=== PATIENT | male | born 1955 | race Caucasian/White ===

== ENCOUNTER 2017-01-01 16:30 | Emergency (ER) | payer OTHER ==
[~2017-01-01] VITALS: Ht 160 cm; Wt 89.8 kg
[~2017-01-01 16:30] MED LIST: LUBI24CA7 PO; Levothyroxine Sodium PO; OXYC-34 PO; PANT40TA2 PO; TADA20TA PO; TREP1.743 IH
--- NOTE | 2017-01-01 17:34 | NUR ---
PT IS IN ROOM #2A. DR LI EVALUATED THE PT.
--- NOTE | 2017-01-01 19:06 | NUR ---
PT WAS D/C TO HOME AFTER ER MD EVALUATION. D/C INSTRUCTIONS GIVEN TO THE PT.
[2017-01-01 19:08] VITALS: BP 142/78
== END 2017-01-01 19:09 | disposition home or self-care (01) ==
LOC: ER 16:30
DX: L03.115 Cellulitis of right lower limb (principal); I10 Essential (primary) hypertension; K21.9 Gastro-esophageal reflux disease without esophagitis; I50.9 Heart failure, unspecified
CPT/HCPCS: A4663

== ENCOUNTER 2017-06-11 01:07 | Emergency (ER) | payer OTHER ==
[~2017-06-11] VITALS: Ht 160 cm; Wt 89.8 kg
[~2017-06-11 01:07] MED LIST changes: +LUBI24CA5 PO; -LUBI24CA7 PO; +OXYC-133 PO; -OXYC-34 PO
--- NOTE | 2017-06-11 01:30 | NUR ---
Dr. Cohen at bedside for MSE
[2017-06-11] MEDS ORDERED: SILVER SULFADIAZINE 1% CREAM 50 GM TP ONE (01:45)
[2017-06-11] MEDS ORDERED: VANCOMYCIN 1G/D5W 200 ML PIGGYBACK IV ONE (01:45)
[2017-06-11] MEDS ORDERED: OXYCODONE/APAP 5-325 MG TABLET PO ONE (01:45)
--- NOTE | 2017-06-11 02:06 | NUR ---
IV established. ABT infusion started, will monitor for any adverse reactions. Pt medicated for discomfort, will monitor for effects of medication
[2017-06-11] MEDS ORDERED: VANCOMYCIN IV 200 ML ONE (02:12)
[2017-06-11] MEDS ORDERED: SILVER SULFADIAZINE 1% CREAM 25 GM TUBE TP ONE (02:12)
[2017-06-11] MEDS ORDERED: OXYCODONE/APAP 5-325 MG TABLET ONE (02:12)
--- NOTE | 2017-06-11 02:16 | NUR ---
wound culture collected and sent from wound to bottom of right foot
--- NOTE | 2017-06-11 02:31 | NUR ---
Wound to bottom of right foot irrigated, silvidine ointment applied and bulky dry drsg applied. Pos CMS s/p application. Pt resting in position of comfort for self waiting completion of ABT infusion.
--- NOTE | 2017-06-11 03:30 | NUR ---
ABT infusion completed, no adverse reactions noted. Pt sts pain improved. Dr. Cohen aware of pt's vital signs, no further orders given at this time. IV dc'd, catheter intact, drsg applied. No problems noted to site. Pt signed out AMA and said he would return later this morning for further treatment. Pt was given [facility] paperwork. Pt verbalized understanding of instructions and verbalized understanding of risks with leaving AMA. Pt ambulated out of ER with slow steady gait to wait for ride.
[2017-06-11 03:34] VITALS: BP 99/58
[2017-06-11] MEDS ORDERED: TEST200V3 IM (17:09)
[2017-06-11] MEDS ORDERED: ZOLP10TA2 PO (17:09)
[2017-06-11] MEDS ORDERED: FURO-151 PO (17:09)
[2017-06-12] MEDS ORDERED: DICL100T2 PO (10:50)
== END 2017-06-11 03:35 | disposition left against medical advice (07) ==
LOC: ER 01:09
DX: L97.519 Non-pressure chronic ulcer of other part of right foot with unspecified severity (principal); L03.115 Cellulitis of right lower limb; I10 Essential (primary) hypertension; I50.9 Heart failure, unspecified; K21.9 Gastro-esophageal reflux disease without esophagitis; Z86.718 Personal history of other venous thrombosis and embolism
CPT/HCPCS: 87070; 87077; 87186; 96365; 99284; A4663; J3370

== ENCOUNTER 2017-06-11 16:45 | Emergency (ER) | payer OTHER ==
[~2017-06-11] VITALS: Ht 160 cm; Wt 90.7 kg
[2017-06-11] MEDS ORDERED: TEST200V3 IM (17:09)
[2017-06-11] MEDS ORDERED: ZOLP10TA2 PO (17:09)
[2017-06-11] MEDS ORDERED: FURO-151 PO (17:09)
[2017-06-11] MEDS ORDERED: VANCOMYCIN IV 1,000 MG in IV DEXTROSE 5% 250 ML IV ONE (17:15)
--- NOTE | 2017-06-11 17:28 | NUR ---
DR KILGORE EVALUATED THE PT. PT REFUSED LAB WORK AND REQUESTED ANTIBIOTIC ADMINISTRATION.
[2017-06-11] MEDS ORDERED: HYDROCODONE/APAP 5-325MG TABLET PO ONE (17:45)
[2017-06-11] MEDS ORDERED: VANCOMYCIN IV 200 ML ONE (17:46)
[2017-06-11] MEDS ORDERED: HYDROCODONE/APAP 5-325MG TABLET ONE (17:56)
--- NOTE | 2017-06-11 19:10 | NUR ---
PT WAS D/C TO HOME. D/C INSTRUCTIONS GIVENO THE PT.
[2017-06-11 19:11] VITALS: BP 148/89
[2017-06-12] MEDS ORDERED: DICL100T2 PO (10:50)
== END 2017-06-11 19:13 | disposition home or self-care (01) ==
LOC: ER 16:46
DX: L97.519 Non-pressure chronic ulcer of other part of right foot with unspecified severity (principal); I11.0 Hypertensive heart disease with heart failure; K21.9 Gastro-esophageal reflux disease without esophagitis; I50.9 Heart failure, unspecified; Z86.73 Personal history of transient ischemic attack (TIA), and cerebral infarction without residual deficits
CPT/HCPCS: A4663; J3370

== ENCOUNTER 2017-06-12 10:38 | Inpatient (IN) | payer OTHER ==
[~2017-06-12] VITALS: Ht 160 cm; Wt 90.7 kg
[~2017-06-12 10:38] MED LIST changes: +FURO-151 PO; +TEST200V3 IM; +ZOLP10TA2 PO
[2017-06-12] MEDS ORDERED: DICL100T2 PO (10:50)
[2017-06-12] MEDS ORDERED: VANCOMYCIN IV 1,000 MG in IV DEXTROSE 5% 250 ML IV ONE (11:30)
[2017-06-12] MEDS ORDERED: ONDANSETRON IV *ER 4 MG/2 ML VIAL IV ONE (11:45)
[2017-06-12] MEDS ORDERED: MORPHINE SULFATE 4 MG/1 ML DISP.SYRIN IV ONE (11:45)
[2017-06-12 11:47] LABS: EOSINOPHILS # (AUTO) 0.1 K/uL (0.0-0.7); WHITE BLOOD COUNT (AUTO) 12.4 K/UL (4.0-11.2)
[2017-06-12 11:49] LABS: CREATININE 2.8 mg/dL (0.6-1.3); POTASSIUM 4.1 mmol/L (3.5-5.1)
[2017-06-12 11:55] LABS: BASOPHILS # (AUTO) 0.5 K/uL (0.0-8.0); BASOPHILS % (AUTO) 3.9 % (0.0-2.0); EOSINOPHILS % (AUTO) 0.9 % (0.0-7.0); HEMATOCRIT 54.8 % (40-50); LYMPHOCYTES # (AUTO) 0.7 K/UL (0.8-4.8); LYMPHOCYTES % (AUTO) 5.5 % (20.5-51.5); MEAN CORPUSCULAR HEMOGLOBIN 24.5 UUG (27.0-31.0); MEAN CORPUSCULAR HGB CONC 31 g/dL (32.0-37.0); MEAN CORPUSCULAR VOLUME 78.7 FL (82.0-92.0); MONOCYTES # (AUTO) 0.7 K/UL (0.1-1.30); MONOCYTES % (AUTO) 5.6 % (0.0-11.0); NEUTROPHILS # (AUTO) 10.4 K/UL (1.8-8.9); NEUTROPHILS % (AUTO) 84.1 % (38.5-71.5); PLATELET COUNT (AUTO) 177 K/UL (150-450)
[2017-06-12 11:56] LABS: TOTAL PROTEIN, SERUM 7.6 g/dL (6.4-8.2)
[2017-06-12] MEDS ORDERED: VANCOMYCIN IV 200 ML ONE (11:56)
[2017-06-12] MEDS ORDERED: ONDANSETRON 4 MG/2 ML VIAL ONE (11:56)
[2017-06-12] MEDS ORDERED: MORPHINE SULFATE 4 MG/1 ML DISP.SYRIN ONE (11:56)
[2017-06-12] MEDS ORDERED: HYDROMORPHONE 1 MG/1 ML DISP.SYRIN IV ONE (12:00)
[2017-06-12 12:03] LABS: RED BLOOD CELL COUNT(AUTO) 6.96 MIL/UL (4.7-6.1)
[2017-06-12 12:06] LABS: LYMPHOCYTES % (MANUAL) 5 % (20-40); MONOCYTES % (MANUAL) 8 % (2-10); NEUTROPHILS % (MANUAL) 87 % (42-75)
[2017-06-12] MEDS ORDERED: HYDROMORPHONE 2 MG/1 ML DISP.SYRIN ONE (12:08)
--- NOTE | 2017-06-12 12:52 | NUR ---
pt fifnished hospital tray with good appetite
--- NOTE | 2017-06-12 14:00 | NUR ---
NEW ADMISSION TO ROOM 214 RECEIVED. PATIENT ALERT AND ORIENTED X4. NO S/S OF DISTRESS OBSERVED.
[2017-06-12 14:30] VITALS: BP 115/70
[2017-06-12] MEDS ORDERED: ACETAMINOPHEN 325 MG TABLET PO PRN (15:00)
[2017-06-12] MEDS ORDERED: ENOXAPARIN SODIUM 40 MG/0.4 ML DISP.SYRIN SQ SCH (15:00)
[2017-06-12] MEDS ORDERED: ONDANSETRON 4 MG/2 ML VIAL IV PRN (15:00)
[2017-06-12] MEDS ORDERED: ZOLPIDEM 5 MG TABLET PO PRN (15:00)
[2017-06-12] MEDS ORDERED: Z GUARD REMEDY PASTE 57 GM TUBE TOP PRN (15:00)
[2017-06-12] MEDS ORDERED: HYDROCODONE/APAP 5-325MG TABLET PO PRN (15:00)
[2017-06-12] MEDS ORDERED: VANCOMYCIN IV 1 G in PREMIXED 0 EACH IV SCH (15:00)
[2017-06-12] MEDS ORDERED: MAGNESIUM HYDROXIDE 30 ML LIQUID UDC PO PRN (15:00)
--- NOTE | 2017-06-12 15:00 | NUR ---
PATIENT SEEN BY DR. MELENDEZ.
--- NOTE | 2017-06-12 15:52 | NUR ---
CLINICAL PHARMACY NOTE:VANCOMYCIN DOSING Request for vancomycin dosing on 61 y/o male 5'3" 200lbs for Cellulitis wound open foot Temp 97.9 BUN 62 Scr 2.8 WBC 12.4 also on Zosyn, received 1gm vancomycin in ER. Will dose by levels due to decrease renal function. Random vancomycin level ordered for tomorrow morning. Will continue to monitor. ,
[2017-06-12] MEDS ORDERED: PIPERACILLIN/TAZOBACTAM/D5W 2.25 G in PREMIXED 1 EACH IV SCH (16:00)
[2017-06-12] MEDS: MORPHINE SULFATE 2 MG/1 ML DISP.SYRIN IV PRN ×2 (16:15→20:34)
--- NOTE | 2017-06-12 16:50 | NUR ---
UNABLE TO GIVE IV ANTIBIOTICS AT THIS TIME. PATIENT REFUSING. PATIENT UNABLE TO DECIDE IF HE IS GOING TO STAY OR NOT, HE IS WORRIED ABOUT HIS ANIMALS.
--- NOTE | 2017-06-12 17:58 | NUR ---
PATIENT DECIDED NOT TO LEAVE AMA. ANTIBIOTICS ADMINISTERED ORDERED.
[2017-06-12 20:00] VITALS: BP 98/60
[2017-06-12] MEDS ORDERED: ENOXAPARIN SODIUM 30 MG/0.3 ML DISP.SYRIN SUBCUT SCH (21:00)
[2017-06-13] MEDS: MORPHINE SULFATE 2 MG/1 ML DISP.SYRIN IV PRN ×4 (00:39→14:07)
[2017-06-13] MEDS: HYDROCODONE/APAP 10-325 MG TABLET PO PRN ×3 (03:30→11:16)
[2017-06-13 04:00] VITALS: BP 114/80
[2017-06-13] MEDS: PIPERACILLIN/TAZOBACTAM/D5W 2.25 G in PREMIXED 1 EACH IV SCH ×2 (06:00→14:13)
[2017-06-13] MEDS ORDERED: PANTOPRAZOLE SODIUM 40 MG TABLET.DR PO SCH ×2 (07:00)
[2017-06-13] MEDS ORDERED: LEVOTHYROXINE SODIUM 50 MCG TABLET PO SCH (07:00)
[2017-06-13 07:01] LABS: MAGNESIUM 2.1 mg/dL (1.8-2.4); POTASSIUM 3.9 mmol/L (3.5-5.1)
[2017-06-13 07:12] LABS: *BILIRUBIN,URIN NEGATIVE (NEGATIVE); *BLOOD, URINE NEGATIVE (NEGATIVE); *CLARITY,URINE CLEAR (CLEAR); *COLOR,URINE YELLOW (YELLOW); *KETONES,URINE NEGATIVE (NEGATIVE); *PROTEIN,URINE 1+ (NEGATIVE); *UROBILINOGEN,URINE 0.2 E.U./dl (NORMAL); LEUKOCYTE ESTERASE ,URINE NEGATIVE (NEGATIVE); NITRITE, URINE NEGATIVE (NEGATIVE); UGLUCOSE NEGATIVE (NEGATIVE)
--- NOTE | 2017-06-13 07:20 | NUR ---
PATIENT RECEIVED IN ROOM ALERT AWAKE IN NO ACUTE DISTRESS. NO C/O PAIN AT THIS TIME. CALL LIGHT AT REACH.
[2017-06-13 07:35] LABS: BASOPHILS # (AUTO) 0.2 K/uL (0.0-8.0); BASOPHILS % (AUTO) 2.9 % (0.0-2.0); EOSINOPHILS # (AUTO) 0.2 K/uL (0.0-0.7); EOSINOPHILS % (AUTO) 2.5 % (0.0-7.0); HEMATOCRIT 54.7 % (40-50); HEMOGLOBIN 17.1 G/DL (14.0-18.0); LYMPHOCYTES # (AUTO) 1.2 K/UL (0.8-4.8); LYMPHOCYTES % (AUTO) 14.1 % (20.5-51.5); MEAN CORPUSCULAR HEMOGLOBIN 24.6 UUG (27.0-31.0); MEAN CORPUSCULAR HGB CONC 31 g/dL (32.0-37.0); MEAN CORPUSCULAR VOLUME 78.7 FL (82.0-92.0); MONOCYTES # (AUTO) 0.5 K/UL (0.1-1.30); MONOCYTES % (AUTO) 5.7 % (0.0-11.0); NEUTROPHILS # (AUTO) 6.2 K/UL (1.8-8.9); NEUTROPHILS % (AUTO) 74.8 % (38.5-71.5); PLATELET COUNT (AUTO) 179 K/UL (150-450); WHITE BLOOD COUNT (AUTO) 8.3 K/UL (4.0-11.2)
[2017-06-13 07:37] LABS: RED BLOOD CELL COUNT(AUTO) 6.95 MIL/UL (4.7-6.1)
[2017-06-13 07:41] LABS: THYROID STIMULATING HORMONE 1.74 mIU/mL (0.358-3.740)
[2017-06-13 07:48] LABS: BACTERIA,URINE NONE SEEN /HPF (NONE SEEN); RBC,URINE 0-3 /HPF (0-3); SQUAMOUS EPITHELIAL CELL,UR NONE SEEN /HPF (NONE SEEN); WBC,URINE 0-3 /HPF (0-3)
[2017-06-13] MEDS ORDERED: TADALAFIL 20 MG PO SCH (09:00)
[2017-06-13] MEDS ORDERED: FUROSEMIDE 40 MG TABLET PO SCH (09:00)
[2017-06-13] MEDS ORDERED: SODIUM HYPOCHLORITE 0.125% 473 ML BOTTLE TP SCH (09:00)
[2017-06-13] MEDS ORDERED: MUPIROCIN 2% OINT 22 GM TUBE TP SCH (09:00)
[2017-06-13] MEDS ORDERED: Medication Not On Formulary EA (Lubiprostone (Amitiza) 24 MCG) PO SCH (09:00)
[2017-06-13] MEDS ORDERED: GENTAMICIN SULFATE 0.1% OINT 15 GM TUBE TOP SCH (09:00)
[2017-06-13] MEDS ORDERED: VANCOMYCIN IV 1,500 MG in IV DEXTROSE 5% 500 ML IV ONE (11:00)
[2017-06-13 11:23] VITALS: BP 125/74
--- NOTE | 2017-06-13 13:50 | NUR ---
PATIENT WALKED TO CASE MANAGEMENT'S OFFICE AND BECAME VERBALLY ABUSIVE [facility] WAS CALLED. PATIENT SCREAMING STATING, "I STAYED HERE FOR YOU TO GET THE HOME HEALTH AND ANTIBIOTICS FOR ME! I NEED TO GO HOME! I AM LEAVING!" TEACHING PROVIDED REGARDING NEEDING MIDLINE BEFORE DISCHARGE FOR IV ADMINISTRATION. PATIENT AGREED TO WAIT FOR MIDLINE.
--- NOTE | 2017-06-13 16:19 | NUR ---
DISCHARGE INSTRUCTIONS PROVIDED. LIST OF BELONGING SINGE AND ALL WAS TAKEN. REFUSED TO TALK TO PHARMACIST REGARDING NEW PRESCRIPTION. MIDLINE TO CANDACE INTACT AND PATENT. IVs TO LEFT ARM REMOVED. DRESSING CHANGING INSTRUCTIONS TEACHING PROVIDED AND VOICED UNDERSTANDING. DR. ROGERS'S PHONE NUMBER AND ADDRESS PROVIDED TO PATIENT FOR FLU. PATIENT LEAVING VIA PRIVATE CAR.
[2017-06-13 16:24] LABS: *CREATININE,URINE 112.8 mg/dL (30-125); *URINE TOTAL PROTEIN RANDOM 29.6 mg/dL (<150/24HR)
[2017-06-14] MEDS ORDERED: MUPIROCIN 2% OINT 22 GM TUBE TP SCH (09:00)
[2017-06-15] MEDS ORDERED: GENTAMICIN SULFATE 0.1% OINT 15 GM TUBE TOP SCH (09:00)
== END 2017-06-13 16:30 | disposition left against medical advice (07) | DRG 344 ==
LOC: ER 10:38 → MED 13:42
PROC: 05H533Z Insertion of Infusion Device into Right Subclavian Vein, Percutaneous Approach (ICD-10-PCS; principal; 2017-06-13)
DX: M86.9 Osteomyelitis, unspecified (principal); N17.0 Acute kidney failure with tubular necrosis; I12.0 Hypertensive chronic kidney disease with stage 5 chronic kidney disease or end stage renal disease; I13.0 Hypertensive heart and chronic kidney disease with heart failure and stage 1 through stage 4 chronic kidney disease, or unspecified chronic kidney disease; I50.32 Chronic diastolic (congestive) heart failure; I27.2 Other secondary pulmonary hypertension; N18.5 Chronic kidney disease, stage 5; L97.519 Non-pressure chronic ulcer of other part of right foot with unspecified severity; E66.9 Obesity, unspecified; G47.33 Obstructive sleep apnea (adult) (pediatric); I25.10 Atherosclerotic heart disease of native coronary artery without angina pectoris; F17.210 Nicotine dependence, cigarettes, uncomplicated; E78.5 Hyperlipidemia, unspecified; K21.9 Gastro-esophageal reflux disease without esophagitis; Z86.718 Personal history of other venous thrombosis and embolism; M19.90 Unspecified osteoarthritis, unspecified site; I87.8 Other specified disorders of veins; Z79.899 Other long term (current) drug therapy; L03.115 Cellulitis of right lower limb; I73.9 Peripheral vascular disease, unspecified; F55.3 Abuse of steroids or hormones; Z68.35 Body mass index [BMI] 35.0-35.9, adult
CPT/HCPCS: 36415; 73630; 83735; 84100; 84156; 84300; 84443; 85025; 85651; 87040; 87070; 87077; A4663; J1170; J1650; J2270; J2405; J2543; J3370; J7060

== ENCOUNTER 2017-07-21 20:06 | Emergency (ER) | payer OTHER ==
[~2017-07-21] VITALS: Ht 160 cm; Wt 90.7 kg
[~2017-07-21 20:06] MED LIST changes: +DICL100T2 PO
[2017-07-21 21:18] LABS: CREATININE 2.9 mg/dL (0.6-1.3); POTASSIUM 3.5 mmol/L (3.5-5.1)
[2017-07-21 21:31] LABS: BILIRUBIN,DIRECT 0.4 mg/dL (0.0-0.2); BILIRUBIN,TOTAL 0.9 mg/dL (0.2-1.0); TOTAL PROTEIN, SERUM 7.5 g/dL (6.4-8.2)
[2017-07-21 21:56] LABS: BASOPHILS % (AUTO) 0.6 % (0.0-2.0); EOSINOPHILS # (AUTO) 0.1 K/uL (0.0-0.7); EOSINOPHILS % (AUTO) 2.3 % (0.0-7.0); LYMPHOCYTES # (AUTO) 0.4 K/UL (0.8-4.8); LYMPHOCYTES % (AUTO) 8.4 % (20.5-51.5); MEAN CORPUSCULAR HEMOGLOBIN 24.7 UUG (27.0-31.0); MEAN CORPUSCULAR HGB CONC 32 g/dL (32.0-37.0); MEAN CORPUSCULAR VOLUME 76.9 FL (82.0-92.0); MONOCYTES # (AUTO) 0.4 K/UL (0.1-1.30); MONOCYTES % (AUTO) 9.5 % (0.0-11.0); NEUTROPHILS # (AUTO) 3.5 K/UL (1.8-8.9); NEUTROPHILS % (AUTO) 79.2 % (38.5-71.5)
[2017-07-21 21:58] LABS: WHITE BLOOD COUNT (AUTO) 8.8 K/UL (4.0-11.2)
--- NOTE | 2017-07-21 21:58 | NUR ---
Patient does not wish to proceed with medical care recommended by Dr. Avendaño. Patient given information related to possible complications, up to and including , which could occur as a result of leaving the hospital at this time. Patient verbalizes understanding of risks involved due to leaving against medical advice. Patient has signed AMA form.
[2017-07-21 21:59] LABS: HEMATOCRIT 53.6 % (40-50); HEMOGLOBIN 17.2 G/DL (14.0-18.0)
[2017-07-21 22:00] LABS: PLATELET COUNT (AUTO) 148 K/UL (150-450)
[2017-07-21 22:03] LABS: RED BLOOD CELL COUNT(AUTO) 6.98 MIL/UL (4.7-6.1)
[2017-07-21 22:06] LABS: LYMPHOCYTES % (MANUAL) 10 % (20-40); MONOCYTES % (MANUAL) 7 % (2-10); NEUTROPHILS % (MANUAL) 83 % (42-75)
== END 2017-07-21 22:01 | disposition left against medical advice (07) ==
LOC: ER 20:06
DX: N17.9 Acute kidney failure, unspecified (principal); J96.90 Respiratory failure, unspecified, unspecified whether with hypoxia or hypercapnia; I11.0 Hypertensive heart disease with heart failure; I50.9 Heart failure, unspecified; K21.9 Gastro-esophageal reflux disease without esophagitis
CPT/HCPCS: 36415; 70030-TC; 71010; 85025; 85730; 93005; A4663

== ENCOUNTER → 2017-09-08 | Emergency (ER) | payer OTHER ==
[~2017-09-08] VITALS: Ht 160 cm; Wt 95.3 kg
[~2017-09-08] MED LIST changes: +ALBUTEROL SULFATE 2.5 MG/3 ML NEBU NEB ONE; +ALBUTEROL SULFATE 2.5 MG/3 ML NEBU ONE
--- NOTE | 2017-09-08 23:21 | NUR ---
DR. LI AT BEDSIDE FOR MSE.
[2017-09-08 23:26] LABS: BASOPHILS # (AUTO) 0.1 K/uL (0.0-8.0); BASOPHILS % (AUTO) 0.8 % (0.0-2.0); EOSINOPHILS # (AUTO) 0.3 K/uL (0.0-0.7); EOSINOPHILS % (AUTO) 3.4 % (0.0-7.0); HEMOGLOBIN 16.8 g/dL (12.5-16.3); LYMPHOCYTES # (AUTO) 1.2 K/uL (20.0-40.0); LYMPHOCYTES % (AUTO) 15.1 % (20.5-51.5); MEAN CORPUSCULAR HEMOGLOBIN 23.9 uug (23.8-33.4); MEAN CORPUSCULAR HGB CONC 32 g/dL (32.5-36.3); MEAN CORPUSCULAR VOLUME 75.1 fL (73.0-96.2); MONOCYTES # (AUTO) 0.8 K/uL (2.0-10.0); MONOCYTES % (AUTO) 10.1 % (0.0-11.0); NEUTROPHILS # (AUTO) 5.5 K/uL (1.8-8.9); NEUTROPHILS % (AUTO) 70.6 % (38.5-71.5); PLATELET COUNT (AUTO) 146 K/uL (152-348); WHITE BLOOD COUNT (AUTO) 7.7 K/uL (3.6-10.2)
[2017-09-08 23:27] LABS: RED BLOOD CELL COUNT(AUTO) 7.05 MIL/uL (4.06-5.63)
[2017-09-08 23:34] LABS: CREATININE 2.4 mg/dL (0.6-1.3); POTASSIUM 3.5 mmol/L (3.5-5.1)
[2017-09-08 23:40] LABS: BILIRUBIN,DIRECT 0.3 mg/dL (0.0-0.2); BILIRUBIN,TOTAL 0.8 mg/dL (0.2-1.0); TOTAL PROTEIN, SERUM 6.6 g/dL (6.4-8.2)
--- NOTE | 2017-09-09 02:30 | NUR ---
Patient does not wish to proceed with medical care recommended by Dr. LI. Patient given information related to possible complications, up to and including , which could occur as a result of leaving the hospital at this time. Patient verbalizes understanding of risks involved due to leaving against medical advice. Patient has signed AMA form.
--- NOTE | 2017-09-09 03:31 | NUR ---
Note prieto in EDM - 09/09/17 at 0332 by [id number] Patient does not wish to proceed with medical care recommended by Dr. LI. Patient given information related to possible complications, up to and including , which could occur as a result of leaving the hospital at this time. Patient verbalizes understanding of risks involved due to leaving against medical advice. Patient has signed AMA form.
== END | disposition home or self-care (01) ==
LOC: ER 22:18
DX: I13.0 Hypertensive heart and chronic kidney disease with heart failure and stage 1 through stage 4 chronic kidney disease, or unspecified chronic kidney disease (principal); I27.20 Pulmonary hypertension, unspecified; I50.9 Heart failure, unspecified; G47.30 Sleep apnea, unspecified; N18.9 Chronic kidney disease, unspecified; J44.1 Chronic obstructive pulmonary disease with (acute) exacerbation; K21.9 Gastro-esophageal reflux disease without esophagitis; L03.115 Cellulitis of right lower limb; L03.116 Cellulitis of left lower limb; I73.9 Peripheral vascular disease, unspecified; D45 Polycythemia vera; Z91.19 Patient's noncompliance with other medical treatment and regimen; Y93.K1 Activity, walking an animal
CPT/HCPCS: 36415; 71010; 80048; 80076; 84484; 85025; 85730; 93005; 94644; 99285; A4663; 70030-TC; 71250

== ENCOUNTER 2017-11-04 17:52 | Emergency (ER) | payer OTHER ==
[~2017-11-04] VITALS: Ht 160 cm; Wt 90.7 kg
[~2017-11-04 17:52] MED LIST changes: -ALBUTEROL SULFATE 2.5 MG/3 ML NEBU NEB ONE; -ALBUTEROL SULFATE 2.5 MG/3 ML NEBU ONE
--- NOTE | 2017-11-04 18:41 | NUR ---
Pt. reports "He's getting upset because it's taking too long to see a doctor, wants to get out of here." Patient eloped from facility. ER physician notified.
== END 2017-11-04 18:49 | disposition left against medical advice (07) ==
LOC: ER 17:54
DX: Z53.21 Procedure and treatment not carried out due to patient leaving prior to being seen by health care provider (principal)
CPT/HCPCS: A4663